=== PATIENT | male | born 1995 | race African-American/Black ===

== ENCOUNTER 2020-09-26 12:19 | Emergency (ER) | payer OTHER | END 2020-09-26 13:37 | disposition home or self-care (01) | LOC: ED 12:19 | PROC: 3E1CX8Z Irrigation of Eye using Irrigating Substance (ICD-10-PCS; principal; 2020-09-26) | DX: T54.2X1A Toxic effect of corrosive acids and acid-like substances, accidental (unintentional), initial encounter (principal); H10.213 Acute toxic conjunctivitis, bilateral; T15.92XA Foreign body on external eye, part unspecified, left eye, initial encounter; T15.91XA Foreign body on external eye, part unspecified, right eye, initial encounter; Y92.89 Other specified places as the place of occurrence of the external cause | CPT/HCPCS: 90471; 90715; 99282 ==